=== PATIENT | male | born 1930 | race Caucasian/White ===

== ENCOUNTER 2019-04-12 07:40 | Inpatient (IN) ==
[2019-04-12] MEDS ORDERED: ONDANSETRON 4 MG/2 ML VIAL IV STA (08:24)
[2019-04-12] MEDS ORDERED: SODIUM CHLORIDE 0.9% 500 ML IV STA (08:24)
[2019-04-12 08:49] LABS: Basophils % 0.6 % (0.0-0.8); Eosinophils # 0.1 10*3/uL (0.0-0.87); Eosinophils % 1.7 % (0.00-10.9); Hemoglobin 9.7 GM/DL (14.0-18.0); Immature Granulocytes % 0.4 %; Immature Granulocytes Absolute 0.02 #; Lymphocytes # 0.9 10*3/uL (1.4-4.0); Lymphocytes % 19.2 % (21.2-54.2); Mean Corpuscular HGB Conc 30.3 GM/DL (32-36); Mean Corpuscular Volume 95.2 FL (87-102); Mean Platelet Volume 10.7 FL (9.6-12.0); Monocytes % 11.1 % (1.7-12.7); Platelet Count 149 T/CUMM (130-400); Red Blood Count 3.36 MC/CUMM (3.8-5.5); Red Cell Distribution Width 14.3 % (9.3-17.3); White Blood Count 4.8 T/CUMM (4-12)
[2019-04-12 08:59] LABS: Albumin 2.5 G/DL (3.4-5.0); Bilirubin,Total 0.4 MG/DL (0.2-1.0); Calcium 7.4 MG/DL (8.5-10.1); Total Protein 5.7 G/DL (6.4-8.3)
[2019-04-12 09:12] LABS: Apearance,Urine Slightly Hazy (Clear); Bilirubin,Urine Negative (Negative); Blood, Urine Negative (Negative); Glucose,Urine (UA) 50 mg/dL (Negative); Hyaline Casts,Urine 12 /LPF (0-3); Ketones,Urine 5 mg/dL (Negative); Mucus,Urine Moderate /LPF (Occasional); Nitrite,Urine Negative (Negative); Protein,Urine 100 MG/DL; RBC,Urine 2 /HPF (0-4); Urine Color Amber (Yellow); Urine Specific Gravity 1.033 (1.001-1.035); WBC,Urine 1 /HPF (0-6)
[2019-04-12] MEDS ORDERED: ALUM/MAG/SIMETH/LIDO VISC 1:1 30 ML BOTTLE PO ONE (09:33)
[2019-04-12] MEDS ORDERED: ALUM/MAG/SIMETH/LIDO VISC 1:1 30 ML BOTTLE PO STA (09:39)
[2019-04-12] MEDS ORDERED: CIPROFLOXACIN INJ 400 MG in PREMIX 1 EACH IV STA (10:13)
[2019-04-12] MEDS ORDERED: ONDANSETRON 4 MG/2 ML VIAL IV PRN (10:13)
[2019-04-12] MEDS ORDERED: metroNIDAZOLE INJ 500 MG in PREMIX 1 EACH IV STA (10:13)
[2019-04-12] MEDS ORDERED: SODIUM CHLORIDE 0.9% 1,000 ML IV SCH (10:30)
[2019-04-12] MEDS ORDERED: PHENOL 1.4% THROAT SPRAY 177 ML BOTTLE PO PRN (16:22)
[2019-04-12] MEDS ORDERED: CYANOCOBALAMIN 1000 MCG/1 ML VIAL IM SCH (18:00)
[2019-04-12] MEDS ORDERED: MAGNESIUM SULF RIDER 2 GM in PREMIX 1 EACH IV ONE (18:04)
[2019-04-12] MEDS ORDERED: MAGNESIUM HYDROXIDE SUSP 30 ML UDCUP PO PRN (18:05)
[2019-04-12] MEDS: metroNIDAZOLE INJ 500 MG in PREMIX 1 EACH IV SCH (18:38)
[2019-04-12] MEDS ORDERED: ALBUTEROL 2.5 MG/3 ML NEB RESP TX PRN (19:00)
[2019-04-12] MEDS: DOCUSATE SODIUM 100 MG CAPSULE PO SCH (20:51)
[2019-04-12] MEDS: DONEPEZIL 10 MG TABLET PO SCH (20:51)
[2019-04-12] MEDS: POTASSIUM CHLORIDE IV SCH (20:52)
[2019-04-12] MEDS: AMIODARONE 200 MG TABLET PO SCH (20:52)
[2019-04-12] MEDS: MAGNESIUM SULF IV SCH (20:52)
[2019-04-12] MEDS: ACETAMINOPHEN 325 MG TABLET PO PRN (20:52)
[2019-04-12] MEDS: GABAPENTIN 600 MG TABLET PO SCH (20:52)
[2019-04-12] MEDS: AMITRIPTYLINE 25 MG TABLET PO SCH (20:52)
[2019-04-12] MEDS: SODIUM CHLORIDE 0.9% IV SCH (20:52)
[2019-04-12] MEDS: glipiZIDE 10 MG TABLET PO SCH (20:52)
[2019-04-12] MEDS: TAMSULOSIN 0.4 MG CAPSULE PO SCH (20:52)
[2019-04-12] MEDS: INSULIN LISPRO 100 UNIT/ML SUBCUT SCH (22:19)
[2019-04-13] MEDS: metroNIDAZOLE INJ 500 MG in PREMIX 1 EACH IV SCH ×3 (02:22→17:54)
[2019-04-13] MEDS: CIPROFLOXACIN INJ 400 MG in PREMIX 1 EACH IV SCH ×2 (03:24→21:17)
[2019-04-13] MEDS: SODIUM CHLORIDE 0.9% IV SCH ×3 (04:58→21:22)
[2019-04-13] MEDS: MAGNESIUM SULF IV SCH ×3 (04:58→21:22)
[2019-04-13] MEDS: POTASSIUM CHLORIDE IV SCH ×3 (04:58→21:22)
[2019-04-13 05:44] LABS: Basophils % 0.3 % (0.0-0.8); Eosinophils # 0.2 10*3/uL (0.0-0.87); Eosinophils % 2.5 % (0.00-10.9); Hemoglobin 9.8 GM/DL (14.0-18.0); Immature Granulocytes % 0.3 %; Immature Granulocytes Absolute 0.02 #; Lymphocytes # 0.8 10*3/uL (1.4-4.0); Lymphocytes % 14.2 % (21.2-54.2); Mean Corpuscular HGB Conc 29.7 GM/DL (32-36); Mean Corpuscular Volume 97.1 FL (87-102); Mean Platelet Volume 10.3 FL (9.6-12.0); Monocytes % 10.1 % (1.7-12.7); Neutrophils % 72.6 % (38.7-73.9); Platelet Count 145 T/CUMM (130-400); Red Cell Distribution Width 14.4 % (9.3-17.3); White Blood Count 5.9 T/CUMM (4-12)
[2019-04-13 06:10] LABS: Albumin 2.9 G/DL (3.4-5.0); Bilirubin,Total 0.4 MG/DL (0.2-1.0); Ferritin 164.3 ng/ml (26-388); Osmolality,Calculated 287.3 MOS/KG (273-304); Risk Ratio 2.69; Thyroid Stimulating Hormone 0.914 uIU/ml (0.358-3.74); Total Protein 5.9 G/DL (6.4-8.3); VLDL CHOLESTEROL 18.2 MG/DL
[2019-04-13 07:03] LABS: Sedimentation Rate-Westergren 45 MM/HR (0-20)
[2019-04-13] MEDS: GABAPENTIN 600 MG TABLET PO SCH ×3 (09:31→21:18)
[2019-04-13] MEDS: sitaGLIPtin 100 MG TABLET PO SCH (09:31)
[2019-04-13] MEDS: LEVOTHYROXINE 50 MCG TABLET PO SCH (09:31)
[2019-04-13] MEDS: CITALOPRAM 20 MG TABLET PO SCH (09:31)
[2019-04-13] MEDS: glipiZIDE 10 MG TABLET PO SCH ×2 (09:31→21:24)
[2019-04-13] MEDS: QUEtiapine 25 MG TABLET PO SCH ×2 (09:32→21:18)
[2019-04-13] MEDS: FERROUS SULFATE 325 MG TABLET PO SCH (09:32)
[2019-04-13] MEDS: TAMSULOSIN 0.4 MG CAPSULE PO SCH ×2 (09:32→21:18)
[2019-04-13] MEDS: AMIODARONE 200 MG TABLET PO SCH ×2 (09:32→21:18)
[2019-04-13] MEDS: amLODIPine 5 MG TABLET PO SCH (09:32)
[2019-04-13] MEDS: ASPIRIN EC 325 MG TABLET PO SCH (09:32)
[2019-04-13] MEDS: DOCUSATE SODIUM 100 MG CAPSULE PO SCH ×2 (09:32→21:18)
[2019-04-13] MEDS: PANTOPRAZOLE 40 MG TABLET PO SCH (09:32)
[2019-04-13] MEDS: ATORVASTATIN 20 MG TABLET PO SCH (09:32)
[2019-04-13] MEDS: PIOGLITAZONE 15 MG TABLET PO SCH (09:37)
[2019-04-13] MEDS: MULTIVITAMIN (INTRINSIC) CAPSULE PO SCH (09:37)
[2019-04-13] MEDS: INSULIN LISPRO 100 UNIT/ML SUBCUT SCH ×4 (10:54→21:20)
[2019-04-13] MEDS: OXYMETAZOLINE 0.05% NASAL SPRAY 15 ML BOTTLE BOTH NARES PRN (12:53)
[2019-04-13] MEDS: DONEPEZIL 10 MG TABLET PO SCH (21:18)
[2019-04-13] MEDS: AMITRIPTYLINE 25 MG TABLET PO SCH (21:18)
[2019-04-14] MEDS: metroNIDAZOLE INJ 500 MG in PREMIX 1 EACH IV SCH ×3 (01:38→17:16)
[2019-04-14] MEDS: MAGNESIUM SULF IV SCH ×2 (04:28→12:09)
[2019-04-14] MEDS: POTASSIUM CHLORIDE IV SCH ×2 (04:28→12:09)
[2019-04-14] MEDS: SODIUM CHLORIDE 0.9% IV SCH ×2 (04:28→12:09)
[2019-04-14 05:44] LABS: Albumin 2.7 G/DL (3.4-5.0); Bilirubin,Total 0.4 MG/DL (0.2-1.0); Calcium 8.1 MG/DL (8.5-10.1); Osmolality,Calculated 283.3 MOS/KG (273-304); Total Protein 5.8 G/DL (6.4-8.3)
[2019-04-14 05:58] LABS: Basophils % 0.4 % (0.0-0.8); Eosinophils # 0.1 10*3/uL (0.0-0.87); Eosinophils % 2.1 % (0.00-10.9); Hematocrit 33.4 VOL% (42.0-52.0); Hemoglobin 9.5 GM/DL (14.0-18.0); Immature Granulocytes % 0.6 %; Immature Granulocytes Absolute 0.03 #; Lymphocytes # 0.7 10*3/uL (1.4-4.0); Mean Corpuscular HGB Conc 28.4 GM/DL (32-36); Mean Platelet Volume 10.7 FL (9.6-12.0); Monocytes % 9.9 % (1.7-12.7); Platelet Count 141 T/CUMM (130-400); Red Blood Count 3.34 MC/CUMM (3.8-5.5); Red Cell Distribution Width 14.6 % (9.3-17.3); White Blood Count 4.8 T/CUMM (4-12)
[2019-04-14 06:30] LABS: Anisocytosis 1+; Platelet Estimate Adequate
[2019-04-14] MEDS: GABAPENTIN 600 MG TABLET PO SCH ×3 (09:42→20:39)
[2019-04-14] MEDS: CITALOPRAM 20 MG TABLET PO SCH (09:42)
[2019-04-14] MEDS: glipiZIDE 10 MG TABLET PO SCH ×2 (09:42→20:39)
[2019-04-14] MEDS: PIOGLITAZONE 15 MG TABLET PO SCH (09:42)
[2019-04-14] MEDS: sitaGLIPtin 100 MG TABLET PO SCH (09:43)
[2019-04-14] MEDS: AMIODARONE 200 MG TABLET PO SCH ×2 (09:43→20:40)
[2019-04-14] MEDS: DOCUSATE SODIUM 100 MG CAPSULE PO SCH ×2 (09:43→20:40)
[2019-04-14] MEDS: TAMSULOSIN 0.4 MG CAPSULE PO SCH ×2 (09:43→20:40)
[2019-04-14] MEDS: PANTOPRAZOLE 40 MG TABLET PO SCH (09:43)
[2019-04-14] MEDS: MULTIVITAMIN (INTRINSIC) CAPSULE PO SCH (09:43)
[2019-04-14] MEDS: FERROUS SULFATE 325 MG TABLET PO SCH (09:43)
[2019-04-14] MEDS: amLODIPine 5 MG TABLET PO SCH (09:43)
[2019-04-14] MEDS: QUEtiapine 25 MG TABLET PO SCH ×2 (09:44→20:40)
[2019-04-14] MEDS: LEVOTHYROXINE 50 MCG TABLET PO SCH (09:44)
[2019-04-14] MEDS: CIPROFLOXACIN INJ 400 MG in PREMIX 1 EACH IV SCH ×2 (09:44→20:40)
[2019-04-14] MEDS: ATORVASTATIN 20 MG TABLET PO SCH (09:44)
[2019-04-14] MEDS: ASPIRIN EC 325 MG TABLET PO SCH (09:46)
[2019-04-14] MEDS: INSULIN LISPRO 100 UNIT/ML SUBCUT SCH ×3 (09:48→20:40)
[2019-04-14] MEDS: OXYMETAZOLINE 0.05% NASAL SPRAY 15 ML BOTTLE BOTH NARES PRN (09:49)
[2019-04-14] MEDS ORDERED: FUROSEMIDE 40 MG/4 ML VIAL IV ONE (11:34)
[2019-04-14] MEDS: ACETAMINOPHEN 325 MG TABLET PO PRN (11:35)
[2019-04-14] MEDS: AMITRIPTYLINE 25 MG TABLET PO SCH (20:40)
[2019-04-14] MEDS: DONEPEZIL 10 MG TABLET PO SCH (20:40)
[2019-04-15] MEDS: metroNIDAZOLE INJ 500 MG in PREMIX 1 EACH IV SCH ×3 (01:56→18:19)
[2019-04-15] MEDS ORDERED: SODIUM CHLORIDE 0.9% 1,000 ML IV SCH (04:30)
[2019-04-15 05:14] LABS: Basophils % 0.6 % (0.0-0.8); Eosinophils # 0.1 10*3/uL (0.0-0.87); Eosinophils % 2.9 % (0.00-10.9); Hematocrit 33.3 VOL% (42.0-52.0); Hemoglobin 9.9 GM/DL (14.0-18.0); Immature Granulocytes % 0.4 %; Immature Granulocytes Absolute 0.02 #; Lymphocytes # 1.2 10*3/uL (1.4-4.0); Lymphocytes % 25.9 % (21.2-54.2); Mean Corpuscular HGB Conc 29.7 GM/DL (32-36); Mean Corpuscular Volume 97.4 FL (87-102); Mean Platelet Volume 10.6 FL (9.6-12.0); Monocytes % 10.9 % (1.7-12.7); Neutrophils % 59.3 % (38.7-73.9); Platelet Count 154 T/CUMM (130-400); Red Blood Count 3.42 MC/CUMM (3.8-5.5); Red Cell Distribution Width 14.6 % (9.3-17.3); White Blood Count 4.8 T/CUMM (4-12)
[2019-04-15 05:31] LABS: Albumin 2.6 G/DL (3.4-5.0); Bilirubin,Total 0.9 MG/DL (0.2-1.0); Calcium 8.2 MG/DL (8.5-10.1); Osmolality,Calculated 281.5 MOS/KG (273-304); Total Protein 5.8 G/DL (6.4-8.3)
[2019-04-15] MEDS ORDERED: SODIUM POLYSTYRENE SULFATE 15 GM/60 ML BOTTLE PO ONE (07:00)
[2019-04-15] MEDS: CIPROFLOXACIN INJ 400 MG in PREMIX 1 EACH IV SCH ×2 (09:09→20:41)
[2019-04-15] MEDS: PIOGLITAZONE 15 MG TABLET PO SCH (09:10)
[2019-04-15] MEDS: amLODIPine 5 MG TABLET PO SCH (09:10)
[2019-04-15] MEDS: CITALOPRAM 20 MG TABLET PO SCH (09:11)
[2019-04-15] MEDS: QUEtiapine 25 MG TABLET PO SCH ×2 (09:12→20:38)
[2019-04-15] MEDS: PANTOPRAZOLE 40 MG TABLET PO SCH (09:12)
[2019-04-15] MEDS: AMIODARONE 200 MG TABLET PO SCH ×2 (09:12→20:39)
[2019-04-15] MEDS: DOCUSATE SODIUM 100 MG CAPSULE PO SCH ×2 (09:12→20:39)
[2019-04-15] MEDS: ATORVASTATIN 20 MG TABLET PO SCH (09:12)
[2019-04-15] MEDS: glipiZIDE 10 MG TABLET PO SCH ×2 (09:12→20:40)
[2019-04-15] MEDS: ASPIRIN EC 325 MG TABLET PO SCH (09:12)
[2019-04-15] MEDS: sitaGLIPtin 100 MG TABLET PO SCH (09:12)
[2019-04-15] MEDS: LEVOTHYROXINE 50 MCG TABLET PO SCH (09:12)
[2019-04-15] MEDS: MULTIVITAMIN (INTRINSIC) CAPSULE PO SCH (09:12)
[2019-04-15] MEDS: FERROUS SULFATE 325 MG TABLET PO SCH (09:12)
[2019-04-15] MEDS: TAMSULOSIN 0.4 MG CAPSULE PO SCH ×2 (09:13→20:39)
[2019-04-15] MEDS: GABAPENTIN 600 MG TABLET PO SCH ×3 (09:15→20:40)
[2019-04-15] MEDS: INSULIN LISPRO 100 UNIT/ML SUBCUT SCH ×4 (12:07→23:42)
[2019-04-15] MEDS ORDERED: FUROSEMIDE 20 MG/2 ML VIAL IV ONE (15:15)
[2019-04-15] MEDS: POTASSIUM CHLORIDE IV SCH (18:23)
[2019-04-15] MEDS: SODIUM CHLORIDE 0.9% IV SCH (18:23)
[2019-04-15] MEDS: MAGNESIUM SULF IV SCH (18:23)
[2019-04-15] MEDS: AMITRIPTYLINE 25 MG TABLET PO SCH (20:39)
[2019-04-15] MEDS: DONEPEZIL 10 MG TABLET PO SCH (20:39)
[2019-04-16] MEDS: metroNIDAZOLE INJ 500 MG in PREMIX 1 EACH IV SCH ×3 (01:34→18:24)
[2019-04-16] MEDS ORDERED: DEXTROSE 50% 25 GM/50 ML VIAL IV PRN (07:50)
[2019-04-16] MEDS ORDERED: GLUCAGON 1 MG VIAL IM PRN (07:50)
[2019-04-16] MEDS: INSULIN LISPRO 100 UNIT/ML SUBCUT SCH ×4 (08:51→22:33)
[2019-04-16] MEDS: glipiZIDE 10 MG TABLET PO SCH ×2 (08:51→20:29)
[2019-04-16] MEDS: PIOGLITAZONE 15 MG TABLET PO SCH (08:52)
[2019-04-16] MEDS: MULTIVITAMIN (INTRINSIC) CAPSULE PO SCH (08:52)
[2019-04-16] MEDS: GABAPENTIN 600 MG TABLET PO SCH ×3 (08:52→20:28)
[2019-04-16] MEDS: ATORVASTATIN 20 MG TABLET PO SCH (08:53)
[2019-04-16] MEDS: amLODIPine 5 MG TABLET PO SCH (08:53)
[2019-04-16] MEDS: FERROUS SULFATE 325 MG TABLET PO SCH (08:53)
[2019-04-16] MEDS: sitaGLIPtin 100 MG TABLET PO SCH (08:53)
[2019-04-16] MEDS: PANTOPRAZOLE 40 MG TABLET PO SCH (08:53)
[2019-04-16] MEDS: TAMSULOSIN 0.4 MG CAPSULE PO SCH ×2 (08:53→20:30)
[2019-04-16] MEDS: LEVOTHYROXINE 50 MCG TABLET PO SCH (08:53)
[2019-04-16] MEDS: ASPIRIN EC 325 MG TABLET PO SCH (09:04)
[2019-04-16] MEDS: AMIODARONE 200 MG TABLET PO SCH ×2 (09:05→20:29)
[2019-04-16] MEDS: DOCUSATE SODIUM 100 MG CAPSULE PO SCH ×2 (09:05→20:31)
[2019-04-16] MEDS: CITALOPRAM 20 MG TABLET PO SCH (09:05)
[2019-04-16] MEDS: QUEtiapine 25 MG TABLET PO SCH ×2 (09:05→20:29)
[2019-04-16] MEDS: CIPROFLOXACIN INJ 400 MG in PREMIX 1 EACH IV SCH ×2 (09:05→20:32)
[2019-04-16] MEDS: DONEPEZIL 10 MG TABLET PO SCH (20:29)
[2019-04-16] MEDS: ACETAMINOPHEN 325 MG TABLET PO PRN (20:30)
[2019-04-16] MEDS: AMITRIPTYLINE 25 MG TABLET PO SCH (20:31)
[2019-04-17] MEDS: metroNIDAZOLE INJ 500 MG in PREMIX 1 EACH IV SCH ×2 (01:18→10:32)
[2019-04-17 04:55] LABS: Basophils % 0.6 % (0.0-0.8); Eosinophils # 0.1 10*3/uL (0.0-0.87); Eosinophils % 4.1 % (0.00-10.9); Hemoglobin 9.3 GM/DL (14.0-18.0); Lymphocytes # 0.8 10*3/uL (1.4-4.0); Lymphocytes % 24.4 % (21.2-54.2); Mean Corpuscular Volume 93.7 FL (87-102); Mean Platelet Volume 10.3 FL (9.6-12.0); Monocytes % 16.6 % (1.7-12.7); Neutrophils % 54.3 % (38.7-73.9); Platelet Count 152 T/CUMM (130-400); Red Blood Count 3.31 MC/CUMM (3.8-5.5); Red Cell Distribution Width 13.9 % (9.3-17.3); White Blood Count 3.2 T/CUMM (4-12)
[2019-04-17 05:17] LABS: Albumin 2.3 G/DL (3.4-5.0); Bilirubin,Total 0.5 MG/DL (0.2-1.0); Calcium 8.3 MG/DL (8.5-10.1); Osmolality,Calculated 278.4 MOS/KG (273-304); Total Protein 5.4 G/DL (6.4-8.3)
[2019-04-17 05:18] LABS: Eosinophils 7 % (0-10); Lymphocytes 18 % (20-55); Segmented Neutrophils 56 % (50-85); Total Cells Counted 100
[2019-04-17 05:19] LABS: Hypochromasia 1+; Ovalocytes Slight; Platelet Estimate Normal
[2019-04-17] MEDS: glipiZIDE 10 MG TABLET PO SCH (08:39)
[2019-04-17] MEDS: CITALOPRAM 20 MG TABLET PO SCH (08:40)
[2019-04-17] MEDS: TAMSULOSIN 0.4 MG CAPSULE PO SCH (08:40)
[2019-04-17] MEDS: GABAPENTIN 600 MG TABLET PO SCH (08:40)
[2019-04-17] MEDS: ATORVASTATIN 20 MG TABLET PO SCH (08:40)
[2019-04-17] MEDS: amLODIPine 5 MG TABLET PO SCH (08:40)
[2019-04-17] MEDS: DOCUSATE SODIUM 100 MG CAPSULE PO SCH (08:40)
[2019-04-17] MEDS: sitaGLIPtin 100 MG TABLET PO SCH (08:40)
[2019-04-17] MEDS: ASPIRIN EC 325 MG TABLET PO SCH (08:40)
[2019-04-17] MEDS: AMIODARONE 200 MG TABLET PO SCH (08:40)
[2019-04-17] MEDS: MULTIVITAMIN (INTRINSIC) CAPSULE PO SCH (08:41)
[2019-04-17] MEDS: FERROUS SULFATE 325 MG TABLET PO SCH (08:41)
[2019-04-17] MEDS: PIOGLITAZONE 15 MG TABLET PO SCH (08:41)
[2019-04-17] MEDS: CIPROFLOXACIN INJ 400 MG in PREMIX 1 EACH IV SCH (08:44)
[2019-04-17] MEDS: PANTOPRAZOLE 40 MG TABLET PO SCH (08:52)
[2019-04-17] MEDS: QUEtiapine 25 MG TABLET PO SCH (08:52)
[2019-04-17] MEDS: LEVOTHYROXINE 50 MCG TABLET PO SCH (08:52)
[2019-04-17] MEDS: INSULIN LISPRO 100 UNIT/ML SUBCUT SCH ×2 (09:22→12:20)
[2019-04-17 11:45] VITALS: BP 109/64
[2019-04-17] MEDS ORDERED: metroNIDAZOLE 500 MG TABLET PO SCH (15:00)
[2019-04-17] MEDS ORDERED: CIPROFLOXACIN 500 MG TABLET PO SCH (21:00)
== END 2019-04-17 15:06 | disposition swing bed (61) | DRG 391 ==
LOC: EDUNIT# → N.EDINP 07:40 → N.ED 07:40 → N.EDINP 12:40 → N.2E 12:56
PROVIDERS: ADMIT Family Medicine; ATTEND Family Medicine

== ENCOUNTER 2019-05-19 16:50 | Inpatient (IN) ==
[2019-05-19] MEDS ORDERED: PHENAZOPYRIDINE 95 MG TABLET PO STA (17:14)
[2019-05-19] MEDS ORDERED: ONDANSETRON 4 MG/2 ML VIAL IV STA (17:14)
[2019-05-19] MEDS ORDERED: TAMSULOSIN 0.4 MG CAPSULE PO STA (17:20)
[2019-05-19 17:27] LABS: Basophils % 0.4 % (0.0-0.8); Eosinophils # 0.1 10*3/uL (0.0-0.87); Hematocrit 28.8 VOL% (42.0-52.0); Hemoglobin 9.2 GM/DL (14.0-18.0); Immature Granulocytes % 0.9 %; Immature Granulocytes Absolute 0.05 #; Lymphocytes % 18.8 % (21.2-54.2); Mean Corpuscular HGB Conc 31.9 GM/DL (32-36); Mean Corpuscular Volume 90.9 FL (87-102); Mean Platelet Volume 9.9 FL (9.6-12.0); Monocytes % 13.6 % (1.7-12.7); Neutrophils % 64.3 % (38.7-73.9); Platelet Count 157 T/CUMM (130-400); Red Blood Count 3.17 MC/CUMM (3.8-5.5); Red Cell Distribution Width 13.4 % (9.3-17.3); White Blood Count 5.5 T/CUMM (4-12)
[2019-05-19] MEDS ORDERED: SODIUM CHLORIDE 0.9% 1,000 ML IV STA (17:43)
[2019-05-19 17:49] LABS: Alanine Aminotransferase 31 U/L (16-61); Albumin 2.8 G/DL (3.4-5.0); Alkaline Phosphatase 47 U/L (45-117); Aspartate Amino Transferase 26 U/L (0-37); Bilirubin,Total < 0.39 MG/DL (0.2-1.0); Blood Urea Nitrogen 46 MG/DL (7-18); Calcium 8.1 MG/DL (8.5-10.1); Estimated Glom Filtration Rate 34 ML/MIN; Glucose 196 MG/DL (74-106); Osmolality,Calculated 289.8 MOS/KG (273-304); Total Protein 6.4 G/DL (6.4-8.3)
[2019-05-19 18:23] LABS: Apearance,Urine Slightly Hazy (Clear); Bilirubin,Urine Negative (Negative); Blood, Urine Negative (Negative); Glucose,Urine (UA) Negative (Negative); Hyaline Casts,Urine 12 /LPF (0-3); Ketones,Urine Negative (Negative); Mucus,Urine Occasional /LPF (Occasional); Nitrite,Urine Negative (Negative); Protein,Urine Negative; RBC,Urine 1 /HPF (0-4); Squamous Epithelial Cell,Urine Occasional /HPF (0-10); Urine Color Yellow (Yellow); Urine Specific Gravity 1.021 (1.001-1.035); Urine Urobilinogen < 2.0 EU/DL (0.2-1.0); WBC,Urine 1 /HPF (0-6)
[2019-05-19] MEDS ORDERED: KETOROLAC 30 MG/1 ML VIAL IV STA (18:29)
[2019-05-19] MEDS ORDERED: SODIUM CHLORIDE 0.9% 500 ML IV STA (19:41)
[2019-05-19] MEDS ORDERED: GLUCAGON 1 MG VIAL IM PRN (20:04)
[2019-05-19] MEDS ORDERED: DEXTROSE 50% 25 GM/50 ML VIAL IV PRN (20:04)
[2019-05-19] MEDS ORDERED: ONDANSETRON 4 MG/2 ML VIAL IV PRN (20:04)
[2019-05-19] MEDS: INSULIN REGULAR 100 UNIT/ML SUBCUT SCH (21:39)
[2019-05-19] MEDS: SODIUM CHLORIDE 0.45% 1,000 ML IV SCH (22:02)
[2019-05-19] MEDS: AMIODARONE 200 MG TABLET PO SCH (22:02)
[2019-05-19] MEDS: TAMSULOSIN 0.4 MG CAPSULE PO SCH (22:03)
[2019-05-20] MEDS: ALBUTEROL/IPRATROPIUM 3 ML NEB RESP TX SCH ×4 (02:19→20:16)
[2019-05-20 06:03] LABS: Calcium 8.1 MG/DL (8.5-10.1); Osmolality,Calculated 283.5 MOS/KG (273-304)
[2019-05-20] MEDS: LEVOTHYROXINE 50 MCG TABLET PO SCH (06:54)
[2019-05-20] MEDS: glipiZIDE 10 MG TABLET PO SCH ×2 (06:54→16:12)
[2019-05-20] MEDS ORDERED: AMIODARONE 200 MG TABLET PO SCH (09:00)
[2019-05-20] MEDS: sitaGLIPtin 25 MG TABLET PO SCH (09:05)
[2019-05-20] MEDS: INSULIN REGULAR 100 UNIT/ML SUBCUT SCH ×4 (09:05→21:52)
[2019-05-20] MEDS: PIOGLITAZONE 15 MG TABLET PO SCH (09:05)
[2019-05-20] MEDS: PANTOPRAZOLE 40 MG TABLET PO SCH (10:27)
[2019-05-20] MEDS: GABAPENTIN 600 MG TABLET PO SCH ×3 (10:27→21:18)
[2019-05-20] MEDS: ATORVASTATIN 20 MG TABLET PO SCH (10:27)
[2019-05-20] MEDS: ASPIRIN EC 325 MG TABLET PO SCH (10:27)
[2019-05-20] MEDS: TAMSULOSIN 0.4 MG CAPSULE PO SCH ×2 (10:27→21:18)
[2019-05-20] MEDS: MULTIVITAMIN (OCUVITE) TABLET PO SCH ×2 (10:27→21:18)
[2019-05-20] MEDS: amLODIPine 5 MG TABLET PO SCH (10:27)
[2019-05-20] MEDS: MULTIVITAMIN (INTRINSIC) CAPSULE PO SCH (10:28)
[2019-05-20] MEDS: CITALOPRAM 20 MG TABLET PO SCH (10:29)
[2019-05-20] MEDS: AMIODARONE 200 MG TABLET PO SCH ×2 (10:30→21:19)
[2019-05-20] MEDS ORDERED: ALBUTEROL 2.5 MG/3 ML NEB RESP TX PRN (11:00)
[2019-05-20] MEDS: SODIUM CHLORIDE 0.45% 1,000 ML IV SCH ×2 (12:45)
[2019-05-20] MEDS: AMITRIPTYLINE 25 MG TABLET PO SCH (21:18)
[2019-05-20] MEDS: DONEPEZIL 10 MG TABLET PO SCH (21:19)
[2019-05-21] MEDS: SODIUM CHLORIDE 0.45% 1,000 ML IV SCH ×3 (00:30→17:54)
[2019-05-21] MEDS: ALBUTEROL/IPRATROPIUM 3 ML NEB RESP TX SCH ×4 (01:55→19:24)
[2019-05-21 05:54] LABS: Basophils % 0.4 % (0.0-0.8); Eosinophils # 0.1 10*3/uL (0.0-0.87); Eosinophils % 1.5 % (0.00-10.9); Hematocrit 28.6 VOL% (42.0-52.0); Hemoglobin 8.9 GM/DL (14.0-18.0); Immature Granulocytes % 0.5 %; Immature Granulocytes Absolute 0.03 #; Lymphocytes # 0.8 10*3/uL (1.4-4.0); Lymphocytes % 13.9 % (21.2-54.2); Mean Corpuscular HGB Conc 31.1 GM/DL (32-36); Mean Corpuscular Volume 91.7 FL (87-102); Mean Platelet Volume 10.8 FL (9.6-12.0); Monocytes % 9.3 % (1.7-12.7); Neutrophils % 74.4 % (38.7-73.9); Platelet Count 164 T/CUMM (130-400); Red Blood Count 3.12 MC/CUMM (3.8-5.5); Red Cell Distribution Width 13.9 % (9.3-17.3); White Blood Count 5.5 T/CUMM (4-12)
[2019-05-21 06:28] LABS: Calcium 8.6 MG/DL (8.5-10.1); Osmolality,Calculated 283.5 MOS/KG (273-304)
[2019-05-21] MEDS: LEVOTHYROXINE 50 MCG TABLET PO SCH (06:37)
[2019-05-21] MEDS: CITALOPRAM 20 MG TABLET PO SCH (09:15)
[2019-05-21] MEDS: amLODIPine 5 MG TABLET PO SCH (09:17)
[2019-05-21] MEDS: MULTIVITAMIN (OCUVITE) TABLET PO SCH ×2 (09:17→20:36)
[2019-05-21] MEDS: GABAPENTIN 600 MG TABLET PO SCH ×3 (09:17→20:36)
[2019-05-21] MEDS: ASPIRIN EC 325 MG TABLET PO SCH (09:17)
[2019-05-21] MEDS: sitaGLIPtin 25 MG TABLET PO SCH (09:18)
[2019-05-21] MEDS: FINASTERIDE 5 MG TABLET PO SCH (09:18)
[2019-05-21] MEDS: PIOGLITAZONE 15 MG TABLET PO SCH (09:18)
[2019-05-21] MEDS: MULTIVITAMIN (INTRINSIC) CAPSULE PO SCH (09:18)
[2019-05-21] MEDS: ATORVASTATIN 20 MG TABLET PO SCH (09:19)
[2019-05-21] MEDS: glipiZIDE 10 MG TABLET PO SCH ×2 (09:19→17:54)
[2019-05-21] MEDS: PANTOPRAZOLE 40 MG TABLET PO SCH (09:19)
[2019-05-21] MEDS: TAMSULOSIN 0.4 MG CAPSULE PO SCH ×2 (09:19→20:35)
[2019-05-21] MEDS: INSULIN REGULAR 100 UNIT/ML SUBCUT SCH ×4 (09:20→22:47)
[2019-05-21] MEDS: AMIODARONE 200 MG TABLET PO SCH ×2 (09:21→20:35)
[2019-05-21] MEDS: AMITRIPTYLINE 25 MG TABLET PO SCH (20:35)
[2019-05-21] MEDS: DONEPEZIL 10 MG TABLET PO SCH (20:36)
[2019-05-22] MEDS: ALBUTEROL/IPRATROPIUM 3 ML NEB RESP TX SCH ×4 (00:26→19:06)
[2019-05-22] MEDS: SODIUM CHLORIDE 0.45% 1,000 ML IV SCH ×3 (02:05→21:28)
[2019-05-22 05:30] LABS: Basophils % 0.2 % (0.0-0.8); Eosinophils # 0.1 10*3/uL (0.0-0.87); Eosinophils % 3.2 % (0.00-10.9); Hematocrit 27.6 VOL% (42.0-52.0); Hemoglobin 8.6 GM/DL (14.0-18.0); Immature Granulocytes % 0.5 %; Immature Granulocytes Absolute 0.02 #; Lymphocytes # 0.9 10*3/uL (1.4-4.0); Lymphocytes % 19.6 % (21.2-54.2); Mean Corpuscular HGB Conc 31.2 GM/DL (32-36); Mean Corpuscular Volume 92.6 FL (87-102); Mean Platelet Volume 10.3 FL (9.6-12.0); Monocytes % 8.9 % (1.7-12.7); Neutrophils % 67.6 % (38.7-73.9); Platelet Count 168 T/CUMM (130-400); Red Blood Count 2.98 MC/CUMM (3.8-5.5); White Blood Count 4.4 T/CUMM (4-12)
[2019-05-22 06:05] LABS: Albumin 2.4 G/DL (3.4-5.0); Bilirubin,Total 0.6 MG/DL (0.2-1.0); Calcium 8.4 MG/DL (8.5-10.1)
[2019-05-22] MEDS: INSULIN REGULAR 100 UNIT/ML SUBCUT SCH ×4 (08:13→21:19)
[2019-05-22] MEDS: glipiZIDE 10 MG TABLET PO SCH ×2 (08:44→15:47)
[2019-05-22] MEDS: MULTIVITAMIN (INTRINSIC) CAPSULE PO SCH (08:44)
[2019-05-22] MEDS: GABAPENTIN 600 MG TABLET PO SCH ×3 (08:44→21:23)
[2019-05-22] MEDS: MULTIVITAMIN (OCUVITE) TABLET PO SCH ×2 (08:45→21:19)
[2019-05-22] MEDS: AMIODARONE 200 MG TABLET PO SCH ×2 (08:45→21:19)
[2019-05-22] MEDS: amLODIPine 5 MG TABLET PO SCH (08:45)
[2019-05-22] MEDS: sitaGLIPtin 25 MG TABLET PO SCH (08:45)
[2019-05-22] MEDS: CITALOPRAM 20 MG TABLET PO SCH (08:45)
[2019-05-22] MEDS: FINASTERIDE 5 MG TABLET PO SCH (08:45)
[2019-05-22] MEDS: PANTOPRAZOLE 40 MG TABLET PO SCH (08:46)
[2019-05-22] MEDS: TAMSULOSIN 0.4 MG CAPSULE PO SCH ×2 (08:46→21:19)
[2019-05-22] MEDS: ATORVASTATIN 20 MG TABLET PO SCH (08:46)
[2019-05-22] MEDS: LEVOTHYROXINE 50 MCG TABLET PO SCH (08:46)
[2019-05-22] MEDS: ASPIRIN EC 325 MG TABLET PO SCH (08:46)
[2019-05-22] MEDS: PIOGLITAZONE 15 MG TABLET PO SCH (08:47)
[2019-05-22] MEDS ORDERED: LIDOCAINE 2% TOP JELLY 20 ML VIAL INTRAURETH ONE (13:21)
[2019-05-22] MEDS ORDERED: NEOMYCIN/POLYMYXIN IRRIG SOLN 1 ML AMP BLADDERIRR ONE (14:06)
[2019-05-22] MEDS ORDERED: GENTAMICIN INJ 80 MG in PREMIX 1 EACH IV ONE (14:09)
[2019-05-22] MEDS ORDERED: GENTAMICIN 80 MG/2 ML VIAL ONE (14:13)
[2019-05-22] MEDS: AMITRIPTYLINE 25 MG TABLET PO SCH (21:18)
[2019-05-22] MEDS: DONEPEZIL 10 MG TABLET PO SCH (21:19)
[2019-05-23] MEDS: ALBUTEROL/IPRATROPIUM 3 ML NEB RESP TX SCH ×4 (00:32→19:24)
[2019-05-23 05:13] LABS: Basophils % 0.2 % (0.0-0.8); Eosinophils # 0.2 10*3/uL (0.0-0.87); Eosinophils % 3.7 % (0.00-10.9); Hemoglobin 8.7 GM/DL (14.0-18.0); Immature Granulocytes % 0.4 %; Immature Granulocytes Absolute 0.02 #; Lymphocytes # 0.9 10*3/uL (1.4-4.0); Lymphocytes % 19.7 % (21.2-54.2); Mean Corpuscular HGB Conc 31.1 GM/DL (32-36); Mean Corpuscular Volume 92.4 FL (87-102); Mean Platelet Volume 10.2 FL (9.6-12.0); Monocytes % 8.5 % (1.7-12.7); Neutrophils % 67.5 % (38.7-73.9); Platelet Count 170 T/CUMM (130-400); Red Blood Count 3.03 MC/CUMM (3.8-5.5); Red Cell Distribution Width 14.1 % (9.3-17.3); White Blood Count 4.6 T/CUMM (4-12)
[2019-05-23 05:49] LABS: Albumin 2.4 G/DL (3.4-5.0); Bilirubin,Total 0.7 MG/DL (0.2-1.0); Calcium 8.1 MG/DL (8.5-10.1); Osmolality,Calculated 280.4 MOS/KG (273-304)
[2019-05-23] MEDS ORDERED: GENTAMICIN INJ 80 MG in PREMIX 1 EACH IV ONE (06:00)
[2019-05-23] MEDS: LEVOTHYROXINE 50 MCG TABLET PO SCH (06:16)
[2019-05-23] MEDS: SODIUM CHLORIDE 0.45% 1,000 ML IV SCH ×3 (09:33→22:33)
[2019-05-23] MEDS: glipiZIDE 10 MG TABLET PO SCH ×2 (09:34→17:22)
[2019-05-23] MEDS: PIOGLITAZONE 15 MG TABLET PO SCH (09:34)
[2019-05-23] MEDS: INSULIN REGULAR 100 UNIT/ML SUBCUT SCH ×4 (09:35→22:33)
[2019-05-23] MEDS: sitaGLIPtin 25 MG TABLET PO SCH (09:35)
[2019-05-23] MEDS: ASPIRIN EC 325 MG TABLET PO SCH (09:36)
[2019-05-23] MEDS: CITALOPRAM 20 MG TABLET PO SCH (09:36)
[2019-05-23] MEDS: ATORVASTATIN 20 MG TABLET PO SCH (09:37)
[2019-05-23] MEDS: GABAPENTIN 600 MG TABLET PO SCH ×3 (09:37→20:30)
[2019-05-23] MEDS: TAMSULOSIN 0.4 MG CAPSULE PO SCH ×2 (09:37→20:30)
[2019-05-23] MEDS: amLODIPine 5 MG TABLET PO SCH (09:37)
[2019-05-23] MEDS: FINASTERIDE 5 MG TABLET PO SCH (09:37)
[2019-05-23] MEDS: AMIODARONE 200 MG TABLET PO SCH ×2 (09:37→22:29)
[2019-05-23] MEDS: MULTIVITAMIN (INTRINSIC) CAPSULE PO SCH (09:38)
[2019-05-23] MEDS: PANTOPRAZOLE 40 MG TABLET PO SCH (09:38)
[2019-05-23] MEDS: MULTIVITAMIN (OCUVITE) TABLET PO SCH ×2 (09:38→20:29)
[2019-05-23] MEDS ORDERED: DEXTROSE 50% 25 GM/50 ML VIAL IV ONE ×3 (13:40→13:54)
[2019-05-23] MEDS ORDERED: GENTAMICIN 80 MG/2 ML VIAL ONE (14:16)
[2019-05-23] MEDS ORDERED: DEXTROSE 50% 25 GM/50 ML VIAL IV PRN (14:39)
[2019-05-23] MEDS ORDERED: PROPOFOL 200 MG/20 ML VIAL IV ONE (14:45)
[2019-05-23] MEDS ORDERED: fentaNYL 100 MCG/2 ML VIAL ONE (14:46)
[2019-05-23] MEDS ORDERED: SEVOFLURANE 1 UNIT/15 MINUTE INH ONE (14:46)
[2019-05-23] MEDS ORDERED: PHENYLEPHRINE 1 MG/10 ML SYRINGE IV ONE (14:46)
[2019-05-23] MEDS ORDERED: PHENYLEPHRINE 10 MG/1 ML VIAL IV ONE (14:46)
[2019-05-23] MEDS: DONEPEZIL 10 MG TABLET PO SCH (20:30)
[2019-05-23] MEDS: AMITRIPTYLINE 25 MG TABLET PO SCH (20:30)
[2019-05-23] MEDS: SULFAMETHOX/TRIMETHOPRIM 800-160 MG TABLET PO SCH (20:42)
[2019-05-24] MEDS: ALBUTEROL/IPRATROPIUM 3 ML NEB RESP TX SCH ×3 (00:04→13:31)
[2019-05-24 04:41] LABS: Basophils % 0.4 % (0.0-0.8); Eosinophils # 0.2 10*3/uL (0.0-0.87); Eosinophils % 4.2 % (0.00-10.9); Hematocrit 27.9 VOL% (42.0-52.0); Hemoglobin 8.7 GM/DL (14.0-18.0); Immature Granulocytes % 0.6 %; Immature Granulocytes Absolute 0.03 #; Lymphocytes # 1.1 10*3/uL (1.4-4.0); Lymphocytes % 21.5 % (21.2-54.2); Mean Corpuscular HGB Conc 31.2 GM/DL (32-36); Mean Corpuscular Volume 91.5 FL (87-102); Mean Platelet Volume 10.2 FL (9.6-12.0); Monocytes % 10.2 % (1.7-12.7); Neutrophils % 63.1 % (38.7-73.9); Platelet Count 172 T/CUMM (130-400); Red Blood Count 3.05 MC/CUMM (3.8-5.5)
[2019-05-24 05:21] LABS: Albumin 2.6 G/DL (3.4-5.0); Bilirubin,Total 0.4 MG/DL (0.2-1.0); Calcium 8.4 MG/DL (8.5-10.1); Osmolality,Calculated 282.1 MOS/KG (273-304); Total Protein 6.1 G/DL (6.4-8.3)
[2019-05-24] MEDS: LEVOTHYROXINE 50 MCG TABLET PO SCH (05:46)
[2019-05-24] MEDS: INSULIN REGULAR 100 UNIT/ML SUBCUT SCH ×2 (08:15→12:00)
[2019-05-24] MEDS: TAMSULOSIN 0.4 MG CAPSULE PO SCH (09:03)
[2019-05-24] MEDS: SULFAMETHOX/TRIMETHOPRIM 800-160 MG TABLET PO SCH (09:03)
[2019-05-24] MEDS: amLODIPine 5 MG TABLET PO SCH (09:03)
[2019-05-24] MEDS: PIOGLITAZONE 15 MG TABLET PO SCH (09:03)
[2019-05-24] MEDS: ASPIRIN EC 325 MG TABLET PO SCH (09:03)
[2019-05-24] MEDS: sitaGLIPtin 25 MG TABLET PO SCH (09:03)
[2019-05-24] MEDS: ATORVASTATIN 20 MG TABLET PO SCH (09:03)
[2019-05-24] MEDS: FINASTERIDE 5 MG TABLET PO SCH (09:03)
[2019-05-24] MEDS: MULTIVITAMIN (OCUVITE) TABLET PO SCH (09:03)
[2019-05-24] MEDS: MULTIVITAMIN (INTRINSIC) CAPSULE PO SCH (09:04)
[2019-05-24] MEDS: AMIODARONE 200 MG TABLET PO SCH (09:04)
[2019-05-24] MEDS: PANTOPRAZOLE 40 MG TABLET PO SCH (09:04)
[2019-05-24] MEDS: CITALOPRAM 20 MG TABLET PO SCH (09:04)
[2019-05-24] MEDS: GABAPENTIN 600 MG TABLET PO SCH ×2 (09:04→15:39)
[2019-05-24] MEDS: glipiZIDE 10 MG TABLET PO SCH (09:05)
[2019-05-24 14:32] VITALS: BP 157/78
[2019-05-26] MEDS ORDERED: CYANOCOBALAMIN 1000 MCG/1 ML VIAL IM SCH (09:00)
== END 2019-05-24 17:17 | disposition home health service (06) | DRG 74 ==
LOC: EDUNIT# → EDBD → N.ED 16:50 → N.EDINP 20:03 → N.5E 20:35
PROVIDERS: ADMIT Family Medicine; ATTEND Family Medicine

== ENCOUNTER 2019-06-02 13:00 | Observation (INO) ==
[2019-06-02 13:59] LABS: Basophils % 0.3 % (0.0-0.8); Eosinophils # 0.2 10*3/uL (0.0-0.87); Hematocrit 29.1 VOL% (42.0-52.0); Hemoglobin 9.2 GM/DL (14.0-18.0); Immature Granulocytes % 0.3 %; Immature Granulocytes Absolute 0.01 #; Lymphocytes % 25.1 % (21.2-54.2); Mean Corpuscular HGB Conc 31.6 GM/DL (32-36); Mean Corpuscular Volume 91.5 FL (87-102); Neutrophils % 59.3 % (38.7-73.9); Platelet Count 157 T/CUMM (130-400); Red Blood Count 3.18 MC/CUMM (3.8-5.5); White Blood Count 3.8 T/CUMM (4-12)
[2019-06-02 14:12] LABS: Calcium 8.2 MG/DL (8.5-10.1); Osmolality,Calculated 296.3 MOS/KG (273-304)
[2019-06-02] MEDS ORDERED: DEXTROSE 10% 250 ML BAG IV PRN (14:52)
[2019-06-02] MEDS ORDERED: ACETAMINOPHEN 325 MG TABLET PO PRN (14:52)
[2019-06-02] MEDS ORDERED: ONDANSETRON 4 MG/2 ML VIAL IV PRN (14:52)
[2019-06-02] MEDS ORDERED: GLUCAGON 1 MG VIAL IM PRN (14:52)
[2019-06-02 15:29] LABS: Apearance,Urine CLEAR (Clear); Bilirubin,Urine Negative (Negative); Blood, Urine Negative (Negative); Glucose,Urine (UA) >=500 mg/dL (Negative); Ketones,Urine Negative (Negative); Mucus,Urine Occasional /LPF (Occasional); Nitrite,Urine Negative (Negative); Protein,Urine Negative; RBC,Urine <1 /HPF (0-4); Squamous Epithelial Cell,Urine Occasional /HPF (0-10); Urine Color Yellow (Yellow); Urine Specific Gravity 1.014 (1.001-1.035); Urine Urobilinogen < 2.0 EU/DL (0.2-1.0); WBC,Urine 1 /HPF (0-6)
[2019-06-02] MEDS ORDERED: ALBUTEROL 2.5 MG/3 ML NEB RESP TX PRN (16:47)
[2019-06-02] MEDS ORDERED: ALBUTEROL/IPRATROPIUM 3 ML NEB RESP TX PRN (16:48)
[2019-06-02] MEDS: AZITHROMYCIN INJ 500 MG in SODIUM CHLORIDE 0.9% 250 ML IV SCH (18:53)
[2019-06-02] MEDS: MULTIVITAMIN (OCUVITE) TABLET PO SCH (22:04)
[2019-06-02] MEDS: GABAPENTIN 600 MG TABLET PO SCH (22:04)
[2019-06-02] MEDS: DONEPEZIL 10 MG TABLET PO SCH (22:04)
[2019-06-02] MEDS: AMITRIPTYLINE 25 MG TABLET PO SCH (22:05)
[2019-06-02] MEDS: TAMSULOSIN 0.4 MG CAPSULE PO SCH (22:05)
[2019-06-02] MEDS: AMIODARONE 200 MG TABLET PO SCH (22:05)
[2019-06-02] MEDS: DOCUSATE SODIUM 100 MG CAPSULE PO SCH (22:06)
[2019-06-03 04:51] LABS: Basophils % 0.5 % (0.0-0.8); Eosinophils # 0.2 10*3/uL (0.0-0.87); Hematocrit 27.2 VOL% (42.0-52.0); Hemoglobin 8.4 GM/DL (14.0-18.0); Immature Granulocytes % 0.5 %; Immature Granulocytes Absolute 0.02 #; Lymphocytes # 1.1 10*3/uL (1.4-4.0); Lymphocytes % 26.7 % (21.2-54.2); Mean Corpuscular HGB Conc 30.9 GM/DL (32-36); Mean Corpuscular Volume 91.6 FL (87-102); Mean Platelet Volume 9.8 FL (9.6-12.0); Neutrophils % 56.3 % (38.7-73.9); Platelet Count 150 T/CUMM (130-400); Red Blood Count 2.97 MC/CUMM (3.8-5.5); Red Cell Distribution Width 13.9 % (9.3-17.3); White Blood Count 4.2 T/CUMM (4-12)
[2019-06-03 05:11] LABS: Calcium 8.5 MG/DL (8.5-10.1); Osmolality,Calculated 285.1 MOS/KG (273-304); Thyroid Stimulating Hormone 1.5 uIU/ml (0.358-3.74)
[2019-06-03] MEDS: GABAPENTIN 600 MG TABLET PO SCH ×3 (08:55→21:09)
[2019-06-03] MEDS: CITALOPRAM 20 MG TABLET PO SCH (08:55)
[2019-06-03] MEDS: MULTIVITAMIN (OCUVITE) TABLET PO SCH ×2 (08:55→21:09)
[2019-06-03] MEDS: sitaGLIPtin 100 MG TABLET PO SCH (08:56)
[2019-06-03] MEDS: LEVOTHYROXINE 50 MCG TABLET PO SCH (08:56)
[2019-06-03] MEDS: ATORVASTATIN 20 MG TABLET PO SCH (08:56)
[2019-06-03] MEDS: ASPIRIN EC 325 MG TABLET PO SCH (08:56)
[2019-06-03] MEDS: TAMSULOSIN 0.4 MG CAPSULE PO SCH ×2 (08:57→21:09)
[2019-06-03] MEDS: amLODIPine 5 MG TABLET PO SCH (08:57)
[2019-06-03] MEDS: PANTOPRAZOLE 20 MG TABLET PO SCH ×2 (08:57→17:47)
[2019-06-03] MEDS: AMIODARONE 200 MG TABLET PO SCH ×2 (08:57→21:09)
[2019-06-03] MEDS: prednisoLONE ACETATE 1% OPH SUSP 5 ML BOTTLE BOTH EYES SCH (08:58)
[2019-06-03] MEDS: DOCUSATE SODIUM 100 MG CAPSULE PO SCH ×2 (08:58→21:09)
[2019-06-03] MEDS ORDERED: PANTOPRAZOLE 40 MG TABLET PO SCH (09:00)
[2019-06-03] MEDS ORDERED: CYANOCOBALAMIN 1000 MCG/1 ML VIAL IM SCH (09:00)
[2019-06-03] MEDS ORDERED: LORazepam 2 MG/1 ML VIAL IV PRN (12:17)
[2019-06-03] MEDS: AMITRIPTYLINE 25 MG TABLET PO SCH (21:08)
[2019-06-03] MEDS: DONEPEZIL 10 MG TABLET PO SCH (21:08)
[2019-06-03] MEDS: AZITHROMYCIN INJ 500 MG in SODIUM CHLORIDE 0.9% 250 ML IV SCH (21:47)
[2019-06-04] MEDS ORDERED: DEXTROSE 10% 25 GM/250 ML BAG IV PRN (08:20)
[2019-06-04] MEDS ORDERED: MAGNESIUM CHLORIDE 64 MG TABLET PO SCH (09:00)
[2019-06-04] MEDS: sitaGLIPtin 100 MG TABLET PO SCH (09:14)
[2019-06-04] MEDS: AMIODARONE 200 MG TABLET PO SCH (09:14)
[2019-06-04] MEDS: ATORVASTATIN 20 MG TABLET PO SCH (09:14)
[2019-06-04] MEDS: GABAPENTIN 600 MG TABLET PO SCH (09:14)
[2019-06-04] MEDS: CITALOPRAM 20 MG TABLET PO SCH (09:14)
[2019-06-04] MEDS: DOCUSATE SODIUM 100 MG CAPSULE PO SCH (09:14)
[2019-06-04] MEDS: LEVOTHYROXINE 50 MCG TABLET PO SCH (09:14)
[2019-06-04] MEDS: TAMSULOSIN 0.4 MG CAPSULE PO SCH (09:14)
[2019-06-04] MEDS: MULTIVITAMIN (OCUVITE) TABLET PO SCH (09:14)
[2019-06-04] MEDS: ASPIRIN EC 325 MG TABLET PO SCH (09:14)
[2019-06-04] MEDS: amLODIPine 5 MG TABLET PO SCH (09:15)
[2019-06-04] MEDS: PANTOPRAZOLE 20 MG TABLET PO SCH (09:15)
[2019-06-04] MEDS: prednisoLONE ACETATE 1% OPH SUSP 5 ML BOTTLE BOTH EYES SCH (09:15)
[2019-06-04] MEDS ORDERED: INSULIN LISPRO 100 UNIT/ML SUBCUT SCH (11:30)
[2019-06-04 11:31] VITALS: BP 136/76
== END 2019-06-04 13:55 | disposition home or self-care (01) ==
LOC: EDUNIT# → EDBD → N.ED 13:00 → N.EDINP 13:00 → N.TELES 16:04
PROVIDERS: ADMIT Family Medicine; ATTEND Family Medicine